=== PATIENT | male | born 1950 | race Caucasian/White ===

== ENCOUNTER 2020-10-22 00:54 | Emergency (ER) | payer MEDICARE, BC ==
[~2020-10-22] VITALS: Ht 185.4 cm; Wt 99.1 kg
[2020-10-22 01:04] VITALS: TEMP 98
[2020-10-22 01:49] LABS: BASO % 0.3 % (0.0-2.0); EOS # 0.1 (0.0-0.7); EOS % 0.8 % (0-4.0); GRAN # 9.2 (1.4-6.5); GRAN % 78.8 % (42.2-75.2); HEMATOCRIT 42.1 % (42.0-52.0); HEMOGLOBIN 13.5 g/dl (13.5-18.0); LYMPH # 1.1 (1.2-3.4); LYMPH % 9.5 % (20.0-51.0); MEAN CELL VOLUME 96 fl (80.0-100.0); MEAN CORPUSCULAR HEMOGLOBIN 31 pg (27.0-31.0); MEAN CORPUSCULAR HGB CONC 32 g/dl (33.0-37.0); MONO # 1.2 (0.1-0.6); MONO % 10.3 % (1.7-9.3); PLATELET COUNT 165 K/mm3 (130-400); RED BLOOD COUNT 4.38 M/mm3 (4.20-5.60); REDCELL DISTRIBUTION WIDTH-CV 13.7 % (11.5-14.5)
[2020-10-22 02:01] LABS: ALANINE AMINOTRANSFERASE 21 U/L (4-49); ALBUMIN 3.9 gm/dL (3.5-5.0); ALKALINE PHOSPHATASE 150 U/L (50-136); ANION GAP 7 mmol/L (7-16); AST,SGOT 27 U/L (15-37); BILIRUBIN,TOTAL 1.3 mg/dL (0.0-1.0); BLOOD UREA NITROGEN 20 mg/dL (9-20); CALCIUM 8.9 mg/dL (8.4-10.2); CARBON DIOXIDE 30 mmol/L (22-30); CHLORIDE 103 mmol/L (98-107); GLUCOSE 118 mg/dL (74-106); POTASSIUM 4.3 mmol/L (3.4-5.0); SODIUM 140 mmol/L (137-145); TOTAL PROTEIN 7.1 gm/dL (6.4-8.2)
[2020-10-22 02:12] LABS: TROPONIN-I < 0.012 ng/mL (0.000-0.035)
[2020-10-22 07:14] VITALS: BP 125/72; PULSE 75
== END 2020-10-22 06:54 | disposition home or self-care (01) ==
LOC: COL.ER 00:54
PROVIDERS: Emergency Medicine
DX: R07.89 Other chest pain (principal); Z87.891 Personal history of nicotine dependence
CPT/HCPCS: J7030

== ENCOUNTER 2021-01-21 03:04 | Emergency (ER) | payer MEDICARE, BC ==
[~2021-01-21] VITALS: Ht 185.4 cm; Wt 94.1 kg
[2021-01-21 03:10] VITALS: TEMP 97.4
[2021-01-21 03:35] LABS: BASO % 0.3 % (0.0-2.0); EOS % 0.4 % (0-4.0); GRAN # 9.6 (1.4-6.5); GRAN % 85.1 % (42.2-75.2); HEMATOCRIT 45.6 % (42.0-52.0); HEMOGLOBIN 14.6 g/dl (13.5-18.0); LYMPH # 1.1 (1.2-3.4); LYMPH % 9.4 % (20.0-51.0); MEAN CELL VOLUME 94 fl (80.0-100.0); MEAN CORPUSCULAR HEMOGLOBIN 30 pg (27.0-31.0); MEAN CORPUSCULAR HGB CONC 32 g/dl (33.0-37.0); MEAN PLATELET VOLUME 10.9 fl (7.4-10.4); MONO # 0.5 (0.1-0.6); MONO % 4.5 % (1.7-9.3); PLATELET COUNT 215 K/mm3 (130-400); RED BLOOD COUNT 4.83 M/mm3 (4.20-5.60); REDCELL DISTRIBUTION WIDTH-CV 14.6 % (11.5-14.5)
[2021-01-21 03:47] LABS: ALBUMIN 4.3 gm/dL (3.5-5.0); BILIRUBIN,TOTAL 0.6 mg/dL (0.0-1.0); C-REACTIVE PROTEIN 1.4 mg/dL (0.0-0.9); CALCIUM 9.2 mg/dL (8.4-10.2); CREATININE, serum 1.09 (0.66-1.25); POTASSIUM 4.3 mmol/L (3.4-5.0); TOTAL PROTEIN 8.1 gm/dL (6.4-8.2)
[2021-01-21 04:45] LABS: COLLECTION METHOD CLEAN CATCH
[2021-01-21 04:51] LABS: MUCOUS Present /lpf; PH 5 (5-8); SQUAMOUS EPITHELIAL 0-2 /hpf; URINE APPEARANCE Clear; URINE BACTERIA None Seen /hpf; URINE BILIRUBIN Negative (NEGATIVE); URINE BLOOD 1+ (NEGATIVE); URINE COLOR Yellow; URINE GLUCOSE Negative (NEGATIVE); URINE KETONE Negative (NEGATIVE); URINE LEUKOCYTE ESTERASE Negative (NEGATIVE); URINE NITRATE Negative (NEGATIVE); URINE PROTEIN(semi-quant) 1+ (NEGATIVE); URINE UROBILINOGEN Negative (NEGATIVE)
[2021-01-21 05:34] VITALS: BP 128/68; PULSE 93
== END 2021-01-21 06:00 | disposition home or self-care (01) ==
LOC: COL.ER 03:04
PROVIDERS: Emergency Medicine
DX: R10.9 Unspecified abdominal pain (principal); J90 Pleural effusion, not elsewhere classified; I25.10 Atherosclerotic heart disease of native coronary artery without angina pectoris; Z85.71 Personal history of Hodgkin lymphoma
CPT/HCPCS: J2270; J2405; J7030; Q9967

== ENCOUNTER → 2021-01-24 | Outpatient (CLI) | payer MEDICARE, BC ==
--- NOTE | 2021-01-24 10:45 | NUR ---
[facility] here for pacemaker management for MRI today
== END ==
LOC: COL.RAD 09:47
DX: G31.9 Degenerative disease of nervous system, unspecified (principal); I67.82 Cerebral ischemia; F03.90 Unspecified dementia, unspecified severity, without behavioral disturbance, psychotic disturbance, mood disturbance, and anxiety
CPT/HCPCS: A9585

== ENCOUNTER 2022-01-05 12:35 | Inpatient (IN) | payer MEDICARE, BC ==
[~2022-01-05] VITALS: Ht 190.5 cm; Wt 94.6 kg
[2022-01-05 13:07] LABS: BASO # 0.1 K/mm3 (0.0-0.2); BASO % 1.3 % (0.0-2.0); EOS # 0.1 K/mm3 (0.0-0.7); EOS % 1.8 % (0.0-4.0); GRAN # 4.8 K/mm3 (1.4-6.5); GRAN % 71.3 % (42.2-75.2); HEMATOCRIT 42.6 % (42.0-52.0); HEMOGLOBIN 13.7 g/dl (13.5-18.0); LYMPH # 1.2 K/mm3 (1.2-3.4); LYMPH % 17.8 % (20.0-51.0); MEAN CELL VOLUME 94 fl (80.0-100.0); MEAN CORPUSCULAR HEMOGLOBIN 30 pg (27-31); MEAN CORPUSCULAR HGB CONC 32 g/dl (33.0-37.0); MONO # 0.5 K/mm3 (0.1-0.6); MONO % 7.7 % (1.7-9.3); PLATELET COUNT 258 K/mm3 (130-400); RED BLOOD COUNT 4.53 M/mm3 (4.20-5.60); REDCELL DISTRIBUTION WIDTH-CV 13.8 % (11.5-14.5)
[2022-01-05 13:24] LABS: ALBUMIN 3.1 gm/dL (3.4-4.8); BILIRUBIN,TOTAL 0.6 mg/dL (0.2-1.2); C-REACTIVE PROTEIN 1.58 mg/dL (0.00-0.50); CALCIUM 8.6 mg/dL (8.4-10.2); CREATININE, serum 1.14 mg/dL (0.72-1.25); TOTAL PROTEIN 6.5 gm/dL (6.2-8.1)
[2022-01-05 13:30] LABS: TROPONIN-I 0.021 ng/mL (0.00-0.033)
--- NOTE | 2022-01-05 15:00 | NUR ---
Order for PICC placement. His is at the bedside. Patient has limited means to establish and/or maintain vascular access via the peripheral route. explained the procedure and benefits of procedure. in agreeance with PICC placement. Patient keeps saying, "NO." He has history of dementia. He is awake. Requesting to go home. Will follow up in am.
[2022-01-05] MEDS ORDERED: LIPITOR 80MG80 MG PO (17:13)
[2022-01-05] MEDS ORDERED: ENTRESTO 24 MG1 EACH PO ×2 (17:14→18:37)
[2022-01-05] MEDS ORDERED: REMERON45 MG PO (17:15)
[2022-01-05] MEDS ORDERED: NAMENDA 10MG TA10 MG PO ×2 (17:16→18:36)
[2022-01-05] MEDS ORDERED: ARICEPT10 MG PO (17:16)
[2022-01-05] MEDS ORDERED: COREG 3.123.125 MG/T PO ×2 (17:17→18:36)
[2022-01-05] MEDS ORDERED: EFFEXOR-XR150 MG PO ×2 (17:17→18:38)
[2022-01-05] MEDS ORDERED: ASPIRIN 81M81 MG/TA2 PO (17:18)
[2022-01-05] MEDS ORDERED: ZYRTEC 10MG10 MG PO (17:19)
[2022-01-05] MEDS ORDERED: SEROQUEL50 MG PO (17:19)
[2022-01-05 18:41] VITALS: BP 97/56; PULSE 80; TEMP 97.2
[2022-01-05 20:12] VITALS: BP 96/53; PULSE 77; TEMP 98.5
[2022-01-05 23:08] LABS: COLLECTION METHOD CLEAN CATCH
[2022-01-05 23:33] LABS: MUCOUS Present (NOT PRESENT); PH 5 (5-8); SQUAMOUS EPITHELIAL 0-2 /hpf (0-10); URINE APPEARANCE Hazy (CLEAR/HAZY); URINE BACTERIA Rare /hpf (NONE SEEN); URINE BILIRUBIN Negative (NEGATIVE); URINE BLOOD Negative (NEGATIVE); URINE COLOR Yellow (YELLOW); URINE GLUCOSE Negative (NEGATIVE); URINE KETONE Negative (NEGATIVE); URINE LEUKOCYTE ESTERASE Trace (NEGATIVE); URINE NITRATE Negative (NEGATIVE); URINE PROTEIN(semi-quant) 1+ (NEGATIVE); URINE UROBILINOGEN Negative (NEGATIVE)
[2022-01-05 23:44] VITALS: BP 99/63; PULSE 80; TEMP 97.5
[2022-01-06] VITALS (7 sets, daily range): BP systolic 87–105; BP diastolic 51–69; PULSE 77–97; TEMP 97.4–98.5
--- NOTE | 2022-01-06 06:37 | NUR ---
pt uncooperative with lab draws this shift, does allow vital signs q4, has removed tele patches x1 but allowed RN to replace. at bedside. pt has voided in toilet, was able to bladder scan x1 with assistance from his , showed 130 cc, at beginning of shift.
--- NOTE | 2022-01-06 08:36 | NUR ---
Scheduled medication given. Shift assessment performed. BP low, patient asymptomatic, all other VSS. Patient alert, but conversation confused. Patient becomes combative with alot of stimulus. Unable to fully assess skin due to agression. Echo partially completed. Patient denies any pain, discomfort, SOA, or further needs at this time. Call light in reach. Fall percautions in place. at the bedside.
--- NOTE | 2022-01-06 10:24 | NUR ---
wool batting worker tried to meet with patient to discuss discharge plan. Upon entry, patient is sleeping. Patient's Jacqueline ([phone]) present at bedside and completes intake for the patient. Patient currently lives at home with his in [place]. Jacqueline reports that she helps the patient with most of her ADL's but every once in a while he can do them on his own with minimal help, but this is not often. States that the patient utilizes a cane to assist with ambulation but has no oxygen needs at home. PCP is Dr. Suarez and he utilizes [facility] for medications. Jacqueline states that the patient does have a DPOA-HC established and that she is his agent. Jacqueline reports that last year the patient had [facility] and that it was for most of the year before the patient returned to his baseline. She reports that she contacted his PCP yesterday morning to discuss going back on HH services before arriving to the hospital. PCP suggested private duty caregivers as well. List of private duty care givers provided to Jacqueline. SHe would like for the patient to return home. Discharge plan: Home; pending PT/OT taylor
--- NOTE | 2022-01-06 11:29 | NUR ---
Attempted to obtain labs after prn seroquel was given. Patient became combative. Unable to obtain labs at this time.
--- NOTE | 2022-01-06 18:27 | NUR ---
Patient has had an ok day. One dose of seroquel given. Patient able to get up and use restroom with no issue. Patient does get combative with cares. Has refused labs, will attempt again in the AM. Patient denies any pain, discomfort, SOA, or further needs at this time. Call light in reach. Fall percautions in place. at the bedside. Blood pressure soft, all other VSS. Patient alert, but not oriented.
--- NOTE | 2022-01-06 20:45 | NUR ---
Initial shift assessment done- is staying the night with patient,can get combative at times, confused, does not like to be bothered, overall cooperative at this time,, patient states when asked he would like something to help him sleep--seroquel given as ordered, Tele on- paced, B/P stable at around 100/50-
[2022-01-07 00:09] VITALS: BP 149/84; PULSE 84; TEMP 97.9
[2022-01-07 04:04] VITALS: BP 138/72; PULSE 84; TEMP 97.6
--- NOTE | 2022-01-07 05:29 | NUR ---
Very quiet night- Slept well with the Seraquel given before bed last night- VSShawn, B/P 138/72. at bedside.
[2022-01-07 06:25] LABS: BASO # 0.1 K/mm3 (0.0-0.2); BASO % 0.9 % (0.0-2.0); EOS # 0.1 K/mm3 (0.0-0.7); EOS % 2.3 % (0.0-4.0); GRAN # 3.8 K/mm3 (1.4-6.5); GRAN % 66.8 % (42.2-75.2); HEMOGLOBIN 12.1 g/dl (13.5-18.0); LYMPH # 1.3 K/mm3 (1.2-3.4); LYMPH % 21.9 % (20.0-51.0); MEAN CELL VOLUME 92 fl (80.0-100.0); MEAN CORPUSCULAR HEMOGLOBIN 30 pg (27-31); MEAN CORPUSCULAR HGB CONC 33 g/dl (33.0-37.0); MEAN PLATELET VOLUME 11.3 fl (7.4-10.4); MONO # 0.5 K/mm3 (0.1-0.6); MONO % 7.9 % (1.7-9.3); PLATELET COUNT 173 K/mm3 (130-400); REDCELL DISTRIBUTION WIDTH-CV 13.9 % (11.5-14.5)
[2022-01-07 06:44] LABS: CALCIUM 7.9 mg/dL (8.4-10.2); CREATININE, serum 0.77 mg/dL (0.72-1.25); POTASSIUM 3.6 mmol/L (3.5-4.5)
[2022-01-07 06:49] LABS: HEMATOCRIT 36.7 % (42.0-52.0)
[2022-01-07 07:45] VITALS: BP 101/64; PULSE 90; TEMP 98.3
[2022-01-07] MEDS ORDERED: OMNICEF 300MG300 MG PO (11:03)
[2022-01-07] MEDS ORDERED: TOPROL XL 25MG25 MG PO (11:04)
[2022-01-07 11:33] VITALS: BP 94/51; PULSE 85; TEMP 98.7
--- NOTE | 2022-01-07 11:40 | NUR ---
PT RESTING IN BED, AT BEDSIDE. MORNING MEDICATIONS GIVEN. SHIFT ASSESSMENT COMPLETED. DENIES ANY PAIN OR NEEDS. EAGER TO GO HOME. WILL CONTINUE TO MONITOR.
--- NOTE | 2022-01-07 15:58 | NUR ---
DISCHARGE INSTRUCTIONS GIVEN. IV D/C.
== END 2022-01-07 16:24 | disposition home or self-care (01) | DRG 314 ==
LOC: COL.ER 12:35 → MEDICAL 15:17
PROVIDERS: Emergency Medicine; ADMIT Student in an Organized Health Care Education/Training Program
DX: I95.9 Hypotension, unspecified (principal); G93.41 Metabolic encephalopathy; N39.0 Urinary tract infection, site not specified; F03.91 Unspecified dementia, unspecified severity, with behavioral disturbance; F05 Delirium due to known physiological condition; I50.22 Chronic systolic (congestive) heart failure; E46 Unspecified protein-calorie malnutrition; G93.40 Encephalopathy, unspecified; I11.0 Hypertensive heart disease with heart failure; I25.10 Atherosclerotic heart disease of native coronary artery without angina pectoris; E86.0 Dehydration; E78.00 Pure hypercholesterolemia, unspecified; Z85.71 Personal history of Hodgkin lymphoma; Z87.891 Personal history of nicotine dependence; I25.2 Old myocardial infarction; Z95.1 Presence of aortocoronary bypass graft; Z95.0 Presence of cardiac pacemaker; Z68.25 Body mass index [BMI] 25.0-25.9, adult
CPT/HCPCS: 99233-AI; 99239; G0378; J0696; J1650; J7030; J7120

== ENCOUNTER 2022-03-11 08:23 | Emergency (ER) | payer MEDICARE, BC ==
[~2022-03-11] VITALS: Ht 182.9 cm; Wt 81.8 kg
[~2022-03-11 08:23] MED LIST: ARICEPT10 MG PO; ASPIRIN 81M81 MG/TA2 PO; COREG 3.123.125 MG/T PO; EFFEXOR-XR150 MG PO; ENTRESTO 24 MG1 EACH PO; LIPITOR 80MG80 MG PO; NAMENDA 10MG TA10 MG PO; OMNICEF 300MG300 MG PO; REMERON45 MG PO; SEROQUEL50 MG PO; TOPROL XL 25MG25 MG PO; ZYRTEC 10MG10 MG PO
[2022-03-11 08:25] VITALS: TEMP 98
[2022-03-11 09:32] VITALS: BP 125/83; PULSE 91
== END 2022-03-11 09:32 | disposition home or self-care (01) ==
LOC: COL.ER 08:23
DX: S09.90XA Unspecified injury of head, initial encounter (principal); W19.XXXA Unspecified fall, initial encounter